=== PATIENT | male | born 1960 | race Caucasian/White ===

== ENCOUNTER 2020-12-23 10:09 | Outpatient (CLI) | payer OTHER ==
[2020-12-23 14:47] LABS: BASOPHILS # (AUTO) 0.1 10^3/uL (0.0-0.1); BASOPHILS % (AUTO) 1.4 %; EOSINOPHILS # (AUTO) 0.2 10^3/uL (0.0-0.7); EOSINOPHILS % (AUTO) 3.6 %; HCT - HEMATOCRIT 43.6 % (42.0-52.0); HGB - HEMOGLOBIN 14.6 g/dL (14.0-18.0); LYMPHOCYTES # (AUTO) 1.6 10^3/uL (1.5-3.5); LYMPHOCYTES % (AUTO) 27.7 %; MEAN CORPUSCULAR HEMOGLOBIN 31.7 pg (27.0-31.0); MEAN CORPUSCULAR HGB CONC 33.5 g/dL (32.0-36.0); MEAN CORPUSCULAR VOLUME 94.6 fL (80.0-94.0); MEAN PLATELET VOLUME 10.7 fL (7.4-11.4); MONOCYTES # (AUTO) 0.5 10^3/uL (0.0-1.0); MONOCYTES % (AUTO) 9.2 %; NEUTROPHILS # (AUTO) 3.4 10^3/uL (1.5-6.6); NEUTROPHILS % (AUTO) 57.8 %; PLT - PLATELET COUNT 190 10^3/uL (130-450); RED BLOOD COUNT 4.61 10^6/uL (4.70-6.10); RED CELL DISTRIBUTION WIDTH 12.9 % (12.0-15.0); WHITE BLOOD COUNT 5.9 x10^3/uL (4.8-10.8)
[2020-12-23 15:37] LABS: ALBUMIN 4.3 g/dL (3.2-5.5); ALBUMIN/GLOBULIN RATIO 1.6 (1.0-2.2); ALKALINE PHOSPHATASE 62 IU/L (42-121); ALT ALANINE AMINOTRANSFERASE 28 IU/L (10-60); AST ASPARTATE AMINOTRANSFERASE 21 IU/L (10-42); BILIRUBIN,TOTAL 0.8 mg/dL (0.2-1.0); BUN - BLOOD UREA NITROGEN 11 mg/dL (6-20); CALCIUM 9.6 mg/dL (8.5-10.3); CARBON DIOXIDE - CO2 24 mmol/L (21-32); CHLORIDE 107 mmol/L (101-111); CHOL/HDL RATIO 5.9 (<5.0); CHOLESTEROL 242 mg/dL; CREATININE 0.6 mg/dL (0.6-1.2); GFR - MDRD 137 (>89); GLUCOSE 159 mg/dL (70-100); HDL CHOLESTEROL 41 mg/dL; POTASSIUM 3.5 mmol/L (3.5-5.0); SODIUM 142 mmol/L (135-145); TRIGLYCERIDES 571 mg/dL
[2020-12-23 16:04] LABS: LDL CHOLESTEROL,DIRECT 103 mg/dL; LDLD/HDL RATIO 2.5 (<3.6)
[2020-12-23 19:48] LABS: ESTIMATED AVERAGE GLUCOSE 143 mg/dL (70-100); HEMOGLOBIN A1c% 6.6 % (4.27-6.07)
== END 2020-12-23 10:10 | disposition home or self-care (01) ==
LOC: LAB.S 10:09
PROVIDERS: ATTEND Internal Medicine
DX: E78.5 Hyperlipidemia, unspecified (principal); E11.9 Type 2 diabetes mellitus without complications; Z12.5 Encounter for screening for malignant neoplasm of prostate
CPT/HCPCS: 36415; 80053; 80061; 83036; 83721; 84153; 85025

== ENCOUNTER 2021-02-22 08:11 | Outpatient (CLI) | payer OTHER ==
--- NOTE | 2021-02-22 14:13 | Ultrasound Report ---
PROCEDURE: Carotid Doppler Complete INDICATIONS: UNCONTROLLED HYPERTENSION, DIZZINESS TECHNIQUE: Color and pulse Doppler interrogation was performed of both carotid systems, with image documentation and velocity measurements. COMPARISON: None. FINDINGS: Right side: Brachial blood pressure: 160/81 mm Hg. Common carotid artery peak systolic velocity: 98.5 cm/sec. Internal carotid artery peak systolic velocity: 107.8 cm/sec. Internal carotid artery end diastolic velocity: 30.7 cm/sec. External carotid artery peak systolic velocity: 107.9 cm/sec. ICA/CCA peak systolic ratio: 1.1 . Fry scale imaging description: No significant atherosclerotic plaques are noted. Percent internal carotid artery stenosis: Normal. Vertebral artery: Flow direction is antegrade. Left side: Brachial blood pressure: 173/91 mm Hg. Common carotid artery peak systolic velocity: 101.8 cm/sec. Internal carotid artery peak systolic velocity: 97 cm/sec. Internal carotid artery end diastolic velocity: 28.7 cm/sec. External carotid artery peak systolic velocity: 114.3 cm/sec. ICA/CCA peak systolic ratio: 1.0 . Fry scale imaging description: No significant atherosclerotic plaque is seen. Percent internal carotid artery stenosis: Normal. Vertebral artery: Flow direction is antegrade. IMPRESSION: No hemodynamically significant stenosis is seen in bilateral internal carotid arteries. The estimate of stenosis included in the report of the imaging study was calculated using the NASCET method Reviewed by: Kemal Maxwell MD on 02/22/2021 2:12 PM PDT Approved by: Kemal Maxwell MD on 02/22/2021 2:12 PM PDT Station ID: [id number]
--- NOTE | 2021-02-22 14:22 | Ultrasound Report ---
PROCEDURE: Arterial Visceral Complete INDICATIONS: UNCONTROLLED HYPERTENSION, DIZZINESS TECHNIQUE: Real time scanning was performed of both kidneys, followed by Color and pulsed Doppler in terrogation of the renal vessels. COMPARISON: None FINDINGS: Aortic peak systolic velocity: 86.1 cm/s. Right side: Fry-scale imaging: Kidney is 13.9 cm long; renal cortical thickness is 2.1 cm. No hydronephrosis. No nephrolithiasis. Renal cortex is normal in echogenicity. No suspicious solid renal masses. Mul tiple right renal cysts are seen measures up to 1.6 x 2.1 x 2.1 cm in size in lower pole of right kid diana and up to 1.4 x 1.4 x 1.4 cm in size in midpole of right kidney. Proximal renal artery peak systolic velocity: 71 cm/s. Mid renal artery peak systolic velocity: 204 cm/s. Distal renal artery peak systolic velocity: 139 cm/s. Renal vein: Patent, without thrombus. Peak renal/aortic ratio (RAR): 2.4. Left side: Fry-scale imaging: Kidney is 12.8 cm long; renal cortical thickness is 2.0 cm. No hydronephrosis. No nephrolithiasis. Renal cortex is normal in echogenicity. No suspicious solid renal masses. Mul tiple left renal cysts are seen measures up to 3.4 x 3.2 x 3.4 cm in size in the upper pole of left k idney and up to 0.8 x 1.1 x 1.1 cm in size in lower pole of left kidney. Proximal renal artery peak systolic velocity: 84 cm/s. Mid-renal artery peak systolic velocity: 94 cm/s. Distal renal artery peak systolic velocity: 163 cm/s. Renal vein: Patent, without thrombus. Peak renal/aortic ratio (RAR): 1.9. IMPRESSION: 1. Bilateral kidneys are normal in size. Bilateral renal cysts as above. No hydronephrosis. No solid- appearing renal lesion. 2. Finding is concerning for greater than 50% stenosis involving proximal right main renal artery. No hemodynamically significant stenosis is noted in left renal artery. Reviewed by: Kemal Maxwell MD on 02/22/2021 2:21 PM PDT Approved by: Kemal Maxwell MD on 02/22/2021 2:21 PM PDT Station ID: [id number]
== END 2021-02-22 08:12 | disposition home or self-care (01) ==
LOC: DI 08:11
PROVIDERS: ATTEND Internal Medicine
DX: I70.1 Atherosclerosis of renal artery (principal); I10 Essential (primary) hypertension; R42 Dizziness and giddiness; N28.1 Cyst of kidney, acquired
CPT/HCPCS: 93880; 93975

== ENCOUNTER 2021-06-19 10:25 | Outpatient (CLI) | payer OTHER ==
[2021-06-19 10:43] LABS: CREATININE,URINE 72.6 mg/dL; PROTEIN/CREATININE RATIO,URINE 0.9 (<=0.2)
== END 2021-06-19 10:26 | disposition home or self-care (01) ==
LOC: LAB 10:25
PROVIDERS: ATTEND Internal Medicine Nephrology
DX: R80.9 Proteinuria, unspecified (principal)
CPT/HCPCS: 82570; 84156

== ENCOUNTER 2021-08-19 10:37 | Outpatient (CLI) | payer OTHER ==
[2021-08-19 14:45] LABS: BASOPHILS # (AUTO) 0.1 10^3/uL (0.0-0.1); BASOPHILS % (AUTO) 1.5 %; EOSINOPHILS # (AUTO) 0.2 10^3/uL (0.0-0.7); EOSINOPHILS % (AUTO) 3.1 %; HCT - HEMATOCRIT 39.7 % (42.0-52.0); HGB - HEMOGLOBIN 13.6 g/dL (14.0-18.0); LYMPHOCYTES # (AUTO) 2.1 10^3/uL (1.5-3.5); LYMPHOCYTES % (AUTO) 31.4 %; MEAN CORPUSCULAR HEMOGLOBIN 31.6 pg (27.0-31.0); MEAN CORPUSCULAR HGB CONC 34.3 g/dL (32.0-36.0); MEAN CORPUSCULAR VOLUME 92.1 fL (80.0-94.0); MONOCYTES # (AUTO) 0.6 10^3/uL (0.0-1.0); MONOCYTES % (AUTO) 9.6 %; NEUTROPHILS # (AUTO) 3.6 10^3/uL (1.5-6.6); NEUTROPHILS % (AUTO) 53.8 %; PLT - PLATELET COUNT 175 10^3/uL (130-450); RED BLOOD COUNT 4.31 10^6/uL (4.70-6.10); RED CELL DISTRIBUTION WIDTH 12.1 % (12.0-15.0); WHITE BLOOD COUNT 6.7 x10^3/uL (4.8-10.8)
[2021-08-19 20:29] LABS: ALBUMIN 4.1 g/dL (3.2-5.5); ALBUMIN/GLOBULIN RATIO 1.5 (1.0-2.2); BILIRUBIN,TOTAL 0.6 mg/dL (0.2-1.0); CALCIUM 9.1 mg/dL (8.5-10.3); CREATININE 0.7 mg/dL (0.6-1.2); POTASSIUM 3.8 mmol/L (3.5-5.0); TOTAL PROTEIN 6.8 g/dL (6.7-8.2)
== END 2021-08-19 10:38 | disposition home or self-care (01) ==
LOC: LAB.S 10:37
PROVIDERS: ATTEND Internal Medicine
DX: E11.9 Type 2 diabetes mellitus without complications (principal)
CPT/HCPCS: 36415; 80053; 81599; 83036; 85025

== ENCOUNTER 2021-08-21 09:25 | Outpatient (CLI) | payer OTHER ==
--- NOTE | 2021-08-21 13:03 | XRAY Report ---
PROCEDURE: Knee Standing BILAT INDICATIONS: KNEE PAIN TECHNIQUE: 2 views of the right knee, and 2 views of the left knee. COMPARISON: None. FINDINGS: Bones: No acute fractures or dislocations. No suspicious bony lesions. Joint spaces appear normal with weightbearing. Mild bilateral knee tricompartmental osteoarthritis. Large bone spur noted at the inferior margin of the right patella. Soft tissues: No knee joint effusions. No suspicious soft tissue calcification. IMPRESSION: Mild bilateral knee tricompartmental osteoarthritis. Large right patellar bone spur. Reviewed by: Claire Tafoya MD, PhD on 08/21/2021 1:01 PM PDT Approved by: Claire Tafoya MD, PhD on 08/21/2021 1:01 PM PDT Station ID: [id number]
== END 2021-08-21 09:26 | disposition home or self-care (01) ==
LOC: DI.S 09:25
PROVIDERS: ATTEND Registered Nurse
DX: M17.0 Bilateral primary osteoarthritis of knee (principal); M76.891 Other specified enthesopathies of right lower limb, excluding foot

== ENCOUNTER 2021-09-30 10:26 | Outpatient (CLI) | payer OTHER ==
--- NOTE | 2021-09-30 15:32 | XRAY Report ---
PROCEDURE: Knee 2 View BILAT INDICATIONS: BILAT KNEE PAIN TECHNIQUE: 2 views of the bilateral knee(s) were acquired. COMPARISON: None. FINDINGS: Bones: No fractures or dislocations. No suspicious bony lesions. There is a left patellar enthesop hyte. Soft tissues: No joint effusion. No suspicious soft tissue calcifications. IMPRESSION: Left patellar enthesophyte. No joint space narrowing or other degenerative changes. Reviewed by: Yamile Dodd MD on 09/30/2021 3:30 PM PDT Approved by: Yamile Dodd MD on 09/30/2021 3:30 PM PDT Station ID: [id number]
== END 2021-09-30 23:59 | disposition home or self-care (01) ==
LOC: DI.WOS 10:26
PROVIDERS: ATTEND Orthopaedic Surgery
DX: M76.9 Unspecified enthesopathy, lower limb, excluding foot (principal)

== ENCOUNTER 2022-07-06 11:48 | Outpatient (CLI) | payer OTHER ==
[2022-07-06 16:56] LABS: CHOL/HDL RATIO 3.5 (<5.0); CHOLESTEROL 106 mg/dL; HDL CHOLESTEROL 30 mg/dL; LDL CHOLESTEROL,CALCULATED 30 mg/dL; TRIGLYCERIDES 231 mg/dL; VLDL CHOLESTEROL 46 mg/dL
[2022-07-06 17:18] LABS: CREATININE,URINE 87.1 mg/dL; MICROALBUM/CREATININE RATIO,UR 24.1 ug/mg (<30.0); MICROALBUMIN,URINE 2.1 mg/dL (0-300.0)
[2022-07-06 22:30] LABS: ESTIMATED AVERAGE GLUCOSE 131 mg/dL (70-100); HEMOGLOBIN A1c% 6.2 % (4.27-6.07)
== END 2022-07-06 11:49 | disposition home or self-care (01) ==
LOC: LAB.S 11:48
PROVIDERS: ATTEND Nurse Practitioner
DX: E11.65 Type 2 diabetes mellitus with hyperglycemia (principal)
CPT/HCPCS: 36415; 80061; 82043; 82570; 83036; 83721

== ENCOUNTER 2022-10-09 12:54 | Outpatient (CLI) | payer OTHER ==
[2022-10-09 15:29] LABS: ESTIMATED AVERAGE GLUCOSE 128 mg/dL (70-100); HEMOGLOBIN A1c% 6.1 % (4.27-6.07)
[2022-10-09 15:39] LABS: ALBUMIN 4.6 g/dL (3.2-5.5); ALBUMIN/GLOBULIN RATIO 1.6 (1.0-2.2); BILIRUBIN,TOTAL 0.7 mg/dL (0.2-1.0); CALCIUM 9.4 mg/dL (8.5-10.3); POTASSIUM 3.8 mmol/L (3.5-5.0); TOTAL PROTEIN 7.5 g/dL (6.7-8.2)
== END 2022-10-09 12:55 | disposition home or self-care (01) ==
LOC: LAB.S 12:54
PROVIDERS: ATTEND Nurse Practitioner
DX: E11.8 Type 2 diabetes mellitus with unspecified complications (principal)
CPT/HCPCS: 36415; 80053; 83036

== ENCOUNTER 2023-04-21 11:49 | Outpatient (CLI) | payer OTHER ==
[2023-04-21 20:40] LABS: ESTIMATED AVERAGE GLUCOSE 146 mg/dL (70-100); HEMOGLOBIN A1c% 6.7 % (4.27-6.07)
== END 2023-04-21 11:50 | disposition home or self-care (01) ==
LOC: LAB.S 11:49
PROVIDERS: ATTEND Nurse Practitioner
DX: E11.65 Type 2 diabetes mellitus with hyperglycemia (principal)
CPT/HCPCS: 36415; 83036

== ENCOUNTER 2023-07-28 13:18 | Outpatient (CLI) | payer OTHER ==
[2023-07-28 19:55] LABS: ALBUMIN 4.5 g/dL (3.2-5.5); ALKALINE PHOSPHATASE 36 IU/L (42-121); ALT ALANINE AMINOTRANSFERASE 27 IU/L (10-60); AST ASPARTATE AMINOTRANSFERASE 29 IU/L (10-42); BILIRUBIN,TOTAL 0.6 mg/dL (0.2-1.0); BUN - BLOOD UREA NITROGEN 18 mg/dL (6-20); CALCIUM 10.2 mg/dL (8.5-10.3); CARBON DIOXIDE - CO2 29 mmol/L (21-32); CHLORIDE 105 mmol/L (101-111); CHOL/HDL RATIO 4.3 (<5.0); CHOLESTEROL 111 mg/dL; CREATININE 0.9 mg/dL (0.6-1.3); CREATININE,URINE 68.2 mg/dL; GFR - MDRD 85 (>89); GLUCOSE 100 mg/dL (74-104); HDL CHOLESTEROL 26 mg/dL; MICROALBUM/CREATININE RATIO,UR 11.7 ug/mg (<30.0); MICROALBUMIN,URINE 0.8 mg/dL; POTASSIUM 3.6 mmol/L (3.5-4.5); SODIUM 141 mmol/L (135-145); TOTAL PROTEIN 6.8 g/dL (6.4-8.9); TRIGLYCERIDES 441 mg/dL (48-352)
[2023-07-28 20:46] LABS: ESTIMATED AVERAGE GLUCOSE 140 mg/dL (70-100); HEMOGLOBIN A1c% 6.5 % (4.27-6.07)
[2023-07-28 20:53] LABS: LDL CHOLESTEROL,DIRECT 35 mg/dL (75-193); LDLD/HDL RATIO 1.3 (<3.6)
== END 2023-07-28 13:19 | disposition home or self-care (01) ==
LOC: LAB.S 13:18
PROVIDERS: ATTEND Nurse Practitioner
DX: E11.22 Type 2 diabetes mellitus with diabetic chronic kidney disease (principal); E11.65 Type 2 diabetes mellitus with hyperglycemia; E78.2 Mixed hyperlipidemia
CPT/HCPCS: 36415; 80053; 80061; 82043; 82570; 83036; 83721

== ENCOUNTER 2023-10-05 11:13 | Outpatient (CLI) | payer OTHER ==
[2023-10-05 14:28] LABS: BASOPHILS # (AUTO) 0.1 10^3/uL (0.0-0.1); BASOPHILS % (AUTO) 1.3 %; EOSINOPHILS # (AUTO) 0.2 10^3/uL (0.0-0.7); EOSINOPHILS % (AUTO) 2.4 %; HCT - HEMATOCRIT 43.2 % (42.0-52.0); HGB - HEMOGLOBIN 13.9 g/dL (14.0-18.0); LYMPHOCYTES # (AUTO) 2.5 10^3/uL (1.5-3.5); LYMPHOCYTES % (AUTO) 31.6 %; MEAN CORPUSCULAR HEMOGLOBIN 30.2 pg (27.0-31.0); MEAN CORPUSCULAR HGB CONC 32.2 g/dL (32.0-36.0); MEAN CORPUSCULAR VOLUME 93.9 fL (80.0-94.0); MEAN PLATELET VOLUME 11.2 fL (7.4-11.4); MONOCYTES # (AUTO) 0.9 10^3/uL (0.0-1.0); MONOCYTES % (AUTO) 10.6 %; NEUTROPHILS # (AUTO) 4.3 10^3/uL (1.5-6.6); NEUTROPHILS % (AUTO) 53.6 %; PLT - PLATELET COUNT 202 10^3/uL (130-450); RED CELL DISTRIBUTION WIDTH 12.9 % (12.0-15.0)
== END 2023-10-05 11:14 | disposition home or self-care (01) ==
LOC: LAB.S 11:13
PROVIDERS: ATTEND Registered Nurse
DX: D64.9 Anemia, unspecified (principal)
CPT/HCPCS: 36415; 85025

== ENCOUNTER 2023-12-17 12:46 | Outpatient (CLI) | payer OTHER ==
[2023-12-17 20:16] LABS: CHOL/HDL RATIO 5.2 (<5.0); CHOLESTEROL 150 mg/dL; HDL CHOLESTEROL 29 mg/dL; LDL CHOLESTEROL,CALCULATED 59 mg/dL; TRIGLYCERIDES 312 mg/dL; VLDL CHOLESTEROL 62 mg/dL
[2023-12-17 21:18] LABS: ESTIMATED AVERAGE GLUCOSE 140 mg/dL (70-100); HEMOGLOBIN A1c% 6.5 % (4.27-6.07)
== END 2023-12-17 12:47 | disposition home or self-care (01) ==
LOC: LAB.S 12:46
PROVIDERS: ATTEND Nurse Practitioner
DX: E11.65 Type 2 diabetes mellitus with hyperglycemia (principal); E78.2 Mixed hyperlipidemia
CPT/HCPCS: 36415; 80061; 83036; 83721